=== PATIENT | male | born 1965 | race Caucasian/White ===

== ENCOUNTER → 2019-04-08 | Outpatient (CLI) | payer OTHER ==
--- NOTE | 2019-04-09 09:02 | RADIOLOGY REPORT (SQ) ---
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 TECHNIQUE: Multiplanar imaging includes non-contrasted T1, T2, FLAIR, and diffusion with ADC map seq uences. Images stored on PACS. LIMITATIONS: None. FINDINGS: ANATOMY: No anomalies. Normal vascular flow voids. Pituitary fossa normal. CSF SPACES: Normal in size and contour. No hemorrhage. CEREBRUM: Sulci and gyri normal in size and contour. Normal white matter signal on FLAIR imaging. No evidence of hemorrhage, mass, or extraaxial fluid collection. POSTERIOR FOSSA: No signal alteration. No hemorrhage. No edema, masses or mass effect. Internal luke tory canals, cerebello-pontine angles, mastoids normal. DIFFUSION IMAGING: Negative for acute or sub-acute infarction. ORBITS: No masses. Globes normal. PARANASAL SINUSES: No fluid levels. Mucosa normal. OTHER: No other significant finding. IMPRESSION: NORMAL MRI OF THE BRAIN WITHOUT INTRAVENOUS GADOLINIUM CONTRAST. EVIDENCE OF ACUTE STROKE: NO. TECHNICAL DOCUMENTATION: JOB ID: [id number] [employer]- All Rights Reserved Reading location - IP/workstation name: [email or web address]
== END ==
LOC: RAD 18:07
PROVIDERS: ATTEND Family Medicine
DX: G52.2 Disorders of vagus nerve (principal); H02.401 Unspecified ptosis of right eyelid
CPT/HCPCS: 70551

== ENCOUNTER 2019-04-20 18:02 | Emergency (ER) | payer OTHER ==
[2019-04-20] MEDS ORDERED: NORMAL SALINE 1000 ML 1,000 ML IV ONE (19:22)
--- NOTE | 2019-04-20 19:22 | ER Document Report ---
ED Medical Screen (RME) - General Chief Complaint: Allergy Symptoms Stated Complaint: POSSIBLE ALLERGIC REACTION Time Seen by Provider: 04/20/19 19:15 Primary Care Provider: MAL WEBB MD [Primary Care Provider] - Follow up as needed TRAVEL OUTSIDE OF THE [place] IN LAST 30 DAYS: No - HPI Notes: 04/20/19 19:22 Patient is a 53-year-old male with a history of anxiety who presents complaining of body aches/chills, "coating feeling over tongue," intermittent clamminess that began yesterday morning. Patient states that he did start taking Cymbalta at that time as well and is not sure if that is related. He is otherwise been able to eat and drink without difficultly. He is urinating normally and having normal bowel movements. He has no concern of pain otherwise. Denies SURESH, fever, neck pain, URI, CP, SOB, Abd pain, n/v/d, dysuria, back pain, or rash. I have treated and performed a rapid initial assessment of this patient. A comprehensive ED assessment and evaluation of the patient, analysis of test results and completion of medical decision making process will be conducted by additional ED providers. PHYSICAL EXAMINATION: GENERAL: Well-appearing, well-nourished and in no acute distress. A&Ox4. Answers questions appropriately. LUNGS: Breath sounds clear to auscultation bilaterally and equal. No wheezes rales or rhonchi. HEART: Regular rate and rhythm without murmurs, rubs, gallops. ABDOMEN: Soft, nondistended abdomen. No guarding, no rebound. Normal bowel sounds present. No CVA tenderness bilaterally. Grossly nontender (cannot elicit thorough abd exam w/o bed, however). Extremities: No cyanosis, clubbing, or edema b/l. NEUROLOGICAL: Normal speech, normal gait. Cranial nerves grossly intact. no focal weakness PSYCH: Normal mood, normal affect. - Related Data Allergies/Adverse Reactions: No Known Allergies Allergy (Unverified 04/20/19 18:37) Past Medical History - Social History Frequency of alcohol use: None Drug Abuse: None Renal/ Medical History: Denies: Hx Peritoneal Dialysis Physical Exam - Vital signs Vitals: Temp Pulse Resp BP Pulse Ox 98.8 F 71 16 133/85 H 96 04/20/19 18:37 04/20/19 18:37 04/20/19 18:37 04/20/19 18:37 04/20/19 18:37 Course - Vital Signs Vital signs: Temp Pulse Resp BP Pulse Ox 98.8 F 71 16 133/85 H 96 04/20/19 18:37 04/20/19 18:37 04/20/19 18:37 04/20/19 18:37 04/20/19 18:37 Doctor's Discharge - Discharge Referrals: MAL WEBB MD [Primary Care Provider] - Follow up as needed
[2019-04-20 20:17] LABS: ABSOLUTE BASOPHILS # (AUTO) 0.1 10^3/uL (0.0-0.2); ABSOLUTE EOSINOPHILS # (AUTO) 0.1 10^3/uL (0.0-0.6); ABSOLUTE LYMPHOCYTES (AUTO) 2.9 10^3/uL (0.5-4.7); ABSOLUTE MONOCYTES (AUTO) 0.9 10^3/uL (0.1-1.4); ABSOLUTE NEUT (AUTO) 8.5 10^3/uL (1.7-8.2); BASOPHILS % (AUTO) 0.9 % (0-2); EOSINOPHILS % (AUTO) 0.9 % (0-6); HEMATOCRIT 48.8 % (37.9-51.0); HEMOGLOBIN 16.3 g/dL (13.5-17.0); LYMPHOCYTES % (AUTO) 23.2 % (13-45); MEAN CORPUSCULAR HEMOGLOBIN 31.1 pg (27.0-33.4); MEAN CORPUSCULAR HGB CONC 33.4 g/dL (32.0-36.0); MEAN CORPUSCULAR VOLUME 93 fl (80-97); MONOCYTES % (AUTO) 6.8 % (3-13); PLATELET COUNT 339 10^3/uL (150-450); RED BLOOD COUNT 5.23 10^6/uL (4.35-5.55); RED CELL DISTRIBUTION WIDTH 13.3 % (11.5-14.0); SEGMENTED NEUTROPHILS % (AUTO) 68.2 % (42-78); TOTAL CELLS COUNTED % (AUTO) 100 %; WHITE BLOOD COUNT 12.5 10^3/uL (4.0-10.5)
[2019-04-20 20:32] LABS: ALANINE AMINOTRANSFERASE 20 U/L (21-72); ALBUMIN 4.6 g/dL (3.5-5.0); ALKALINE PHOSPHATASE 109 U/L (38-126); ANION GAP 9 (5-19); ASPARTATE AMINO TRANSFERASE 23 U/L (17-59); BILIRUBIN,DIRECT 0.2 mg/dL (0.0-0.4); BLOOD UREA NITROGEN 16 mg/dL (7-20); CALCIUM 9.8 mg/dL (8.4-10.2); CARBON DIOXIDE 26 mmol/L (22-30); CHLORIDE 107 mmol/L (98-107); CREATINE KINASE 68 U/L (55-170); GLUCOSE 86 mg/dL (75-110); POTASSIUM 4.1 mmol/L (3.6-5.0); SODIUM 141.7 mmol/L (137-145); TOTAL PROTEIN 7.7 g/dL (6.3-8.2)
[2019-04-20] MEDS ORDERED: DIAZEPAM 5 MG TABLET PO ONE (20:47)
--- NOTE | 2019-04-20 20:56 | ER Document Report ---
ED General - General Chief Complaint: Allergy Symptoms Stated Complaint: POSSIBLE ALLERGIC REACTION Time Seen by Provider: 04/20/19 19:15 Primary Care Provider: MAL WEBB MD [Primary Care Provider] - Follow up as needed Notes: Patient is a 53-year-old male that comes to the emergency department for chief complaint of low energy, generalized body aches, dry mouth, generally not feeling right. He states he started feeling this way after he started taking Cymbalta this patient, he was prescribed this for anxiety/depression. He denies palpitations, abdominal pain, chest pain, dizziness, focal numbness or weakness, fever/chills. He also was placed on Augmentin "for a toothache". Patient's states that she gave him some of her Cymbalta in the past and he had a similar reaction where he was tired all the time, had no energy, stayed in bed, and had nonspecific symptoms otherwise. Patient agrees with this but states he had forgotten this. He smokes, denies alcohol or recreational drugs. He denies suicidal ideations or homicidal ideations. TRAVEL OUTSIDE OF THE [place] IN LAST 30 DAYS: No - Related Data Allergies/Adverse Reactions: No Known Allergies Allergy (Unverified 04/20/19 18:37) Past Medical History - General Information source: Patient, Relative - Social History Smoking Status: Current Every Day Smoker Frequency of alcohol use: None Drug Abuse: None Lives with: Family Family History: Reviewed & Not Pertinent Patient has suicidal ideation: No Patient has homicidal ideation: No Renal/ Medical History: Denies: Hx Peritoneal Dialysis Review of Systems - Review of Systems Constitutional: See HPI EENT: See HPI Cardiovascular: No symptoms reported Respiratory: No symptoms reported Gastrointestinal: No symptoms reported Genitourinary: No symptoms reported Male Genitourinary: No symptoms reported Musculoskeletal: No symptoms reported Skin: No symptoms reported Hematologic/Lymphatic: No symptoms reported Neurological/Psychological: See HPI Physical Exam - Vital signs Vitals: Temp Pulse Resp BP Pulse Ox 98.8 F 71 16 133/85 H 96 04/20/19 18:37 04/20/19 18:37 04/20/19 18:37 04/20/19 18:37 04/20/19 18:37 - Notes Notes: GENERAL: Alert, interacts well. No acute distress. HEAD: Normocephalic, atraumatic. EYES: Pupils equal, round, and reactive to light. Extraocular movements intact. ENT: Oral mucosa moist, tongue midline. Oropharynx unremarkable. Airway patent. NECK: Full range of motion. Supple. Trachea midline. LUNGS: Clear to auscultation bilaterally, no wheezes, rales, or rhonchi. No respiratory distress. HEART: Regular rate and rhythm. No murmur ABDOMEN: Soft, non-tender. Non-distended. Bowel sounds present in all 4 quadrants. GENITOURINARY: Deferred EXTREMITIES: Moves all 4 extremities spontaneously. No edema, normal radial and dorsalis pedis pulses bilaterally. No cyanosis. BACK: no cervical, thoracic, lumbar midline tenderness. No saddle anesthesia, normal distal neurovascular exam. Moves all extremities in full range of motion. NEUROLOGICAL: Alert and oriented x3. Normal speech. Cranial nerves II through XII grossly intact. PSYCH: Slightly anxious, glancing around while speaking, restless behavior SKIN: Warm, dry, normal turgor. No rashes or lesions noted. Course - Re-evaluation Re-evalutation: On my examination patient is a parched mucous membranes, he is very anxious, however he has a normal neurological exam, his examination is completely unremarkable otherwise. He will be given IV fluids. Work-up pending. CBC shows mild leukocytosis, chemistry is unremarkable, urinalysis shows elevated specific gravity and ketones. I reevaluate the patient. Patient states he has not been able to sleep well for the past couple of days but he is exhausted all times. He states he had poor response to Cymbalta when he was taking in the past and he felt the same general way previously. I do not see any signs of concerning allergic reaction or concerning side effects. Vital signs are unremarkable. Patient denies SI or HI, he states he is close follow- up with his primary care who provided the Cymbalta, he states he is not planning on taking it tomorrow. Patient states he would like some to help calm down and sleep tonight, he was given a dose of Valium, he was reevaluated and much more comfortable. Discussed follow-up, work-up, and the patient with family as well, they state satisfaction with taking him home and having him follow-up. I discussed return precautions with the mouth. They state understanding and agreement. - Vital Signs Vital signs: Temp Pulse Resp BP Pulse Ox 98.1 F 71 17 121/67 98 04/20/19 21:20 04/20/19 18:37 04/20/19 22:01 04/20/19 22:01 04/20/19 22:01 - Laboratory Result Diagrams: 04/20/19 20:00 04/20/19 20:00 Laboratory results interpreted by me: 04/20/19 04/20/19 04/20/19 20:00 20:00 20:54 WBC 12.5 H Absolute Neutrophils 8.5 H ALT 20 L Urine Protein 30 H Urine Ketones 20 H Urine Urobilinogen 4.0 H Ur Leukocyte Esterase TRACE H Discharge - Discharge Clinical Impression: Medication side effect, Dehydration, Anxiety Condition: Stable Disposition: HOME, SELF-CARE Additional Instructions: Your work-up shows dehydration but is otherwise unremarkable. Your symptoms are nonspecific, as result it is uncertain if these are from the medication you just started or other source. However because you have had similar symptoms in the past with the same medication I recommend that you stop the Cymbalta until you speak to your primary care provider for additional management. Improve your hydration. Return if you worsen including headache, weakness on one side of your body, passing out, fever, or any other concerning or worsening symptoms. Forms: Return to Work Referrals: MAL WEBB MD [Primary Care Provider] - Follow up as needed
[2019-04-20 21:30] LABS: APPEARANCE,URINE SLIGHTLY-CLOUDY; BILIRUBIN,URINE NEGATIVE (NEGATIVE); GLUCOSE, URINE NEGATIVE (NEGATIVE); KETONES,URINE 20 mg/dL (NEGATIVE); LEUKOCYTE ESTERASE,URINE TRACE (NEGATIVE); NITRITE,URINE NEGATIVE (NEGATIVE); PROTEIN,URINE 30 mg/dL (NEGATIVE); URINE SPECIFIC GRAVITY 1.028
[2019-04-20 21:31] LABS: COLOR,URINE DARK YELLOW
[2019-04-20 22:20] VITALS: BP 121/67
== END 2019-04-20 22:28 | disposition home or self-care (01) ==
LOC: ER 18:02
DX: E86.0 Dehydration (principal); F41.9 Anxiety disorder, unspecified; T43.215A Adverse effect of selective serotonin and norepinephrine reuptake inhibitors, initial encounter; X58.XXXA Exposure to other specified factors, initial encounter; F17.200 Nicotine dependence, unspecified, uncomplicated
CPT/HCPCS: 99283; 36415; 82550; 85025; 80053; 81001; J7030

== ENCOUNTER 2020-02-13 08:02 | Emergency (ER) | payer OTHER ==
[2020-02-13 08:26] LABS: ABSOLUTE BASOPHILS # (AUTO) 0.1 10^3/uL (0.0-0.2); ABSOLUTE EOSINOPHILS # (AUTO) 0.2 10^3/uL (0.0-0.6); ABSOLUTE LYMPHOCYTES (AUTO) 2.4 10^3/uL (0.5-4.7); ABSOLUTE MONOCYTES (AUTO) 0.8 10^3/uL (0.1-1.4); ABSOLUTE NEUT (AUTO) 4.9 10^3/uL (1.7-8.2); BASOPHILS % (AUTO) 0.6 % (0-2); EOSINOPHILS % (AUTO) 2.6 % (0-6); HEMATOCRIT 46.5 % (37.9-51.0); LYMPHOCYTES % (AUTO) 29.3 % (13-45); MEAN CORPUSCULAR HEMOGLOBIN 32.7 pg (27.0-33.4); MEAN CORPUSCULAR HGB CONC 34.5 g/dL (32.0-36.0); MEAN CORPUSCULAR VOLUME 95 fl (80-97); MONOCYTES % (AUTO) 9.1 % (3-13); PLATELET COUNT 398 10^3/uL (150-450); RED BLOOD COUNT 4.91 10^6/uL (4.35-5.55); RED CELL DISTRIBUTION WIDTH 14.5 % (11.5-14.0); SEGMENTED NEUTROPHILS % (AUTO) 58.4 % (42-78); TOTAL CELLS COUNTED % (AUTO) 100 %; WHITE BLOOD COUNT 8.3 10^3/uL (4.0-10.5)
[2020-02-13] MEDS ORDERED: LIDOCAINE 2% VISCOUS SOLN 15 ML UDCUP PO ONE (08:29)
[2020-02-13] MEDS ORDERED: MAG HYDROX/AL HYDROX/SIMETH SUSP 30 ML UDCUP PO ONE (08:29)
[2020-02-13] MEDS ORDERED: METOCLOPRAMIDE HCL ORAL SOLN 10 MG/10 ML UDCUP PO ONE (08:29)
--- NOTE | 2020-02-13 08:30 | ER Document Report ---
ED Cardiac - General Chief Complaint: Chest Pain Stated Complaint: CHEST PAIN Time Seen by Provider: 02/13/20 08:13 Primary Care Provider: MAL WEBB MD [Primary Care Provider] - Follow up as needed Notes: CHIEF COMPLAINT: Sharp midsternal chest pain this morning HPI: 54-year-old male who smokes presenting for sharp midsternal chest pain today, describes it as a ripping sensation that began after he drank coffee this morning. Has not had nausea vomiting. Does report some tightness in the chest and shortness of breath with the discomfort only. Has not had recent cough fever or other illness. Patient reports no known history of cardiac problems. Patient states that he has had a toothache recently, recently saw his PCP to be placed on antibiotics yesterday but has been taking large amounts of ibuprofen f or the pain. ROS: See HPI - all other systems were reviewed and are otherwise negative Constitutional: no fever Eyes: no drainage, no blurred vision ENT: no runny nose, no sore throat Cardiovascular: + chest pain Resp: + SOB, no cough GI: no vomiting, no diarrhea, + abdominal pain : no dysuria Integumentary: no rash Allergy: no hives Musculoskeletal: no extremity pain or swelling Neurological: no numbness/tingling, no weakness MEDICATIONS: I agree with the patient medications as charted by the RN. ALLERGIES: I agree with the allergies as charted by the RN. PAST MEDICAL HISTORY/PAST SURGICAL HISTORY: Reviewed and agree as charted by RN. SOCIAL HISTORY: Reviewed and agree as charted by RN. FAMILY HISTORY: No significant familial comorbid conditions directly related to patient complaint EXAM: Reviewed vital signs as charted by RN. CONSTITUTIONAL: Alert and oriented and responds appropriately to questions. Well-appearing; well-nourished, moderate distress secondary to pain HEAD: Normocephalic; atraumatic EYES: PERRL; Conjunctivae clear, sclerae non-icteric ENT: normal nose; no rhinorrhea; moist mucous membranes; pharynx without lesions noted, no uvula edema or deviation, no tonsillar hypertrophy, phonation normal NECK: Supple without meningismus; non-tender; no cervical lymphadenopathy, no masses CARD: RRR; no murmurs, no clicks, no rubs, no gallops; symmetric distal pulses RESP: Normal chest excursion without splinting or tachypnea; breath sounds clear and equal bilaterally; no wheezes, no rhonchi, no rales, pulse oximetry 98% on room air not hypoxic ABD/GI: Normal bowel sounds; non-distended; soft, mild epigastric tenderness on palpation, no rebound, no guarding; no palpable organomegaly or masses. BACK: The back appears normal and is non-tender to palpation, there is no CVA tenderness EXT: Normal ROM in all joints; non-tender to palpation; no cyanosis, no effusions, no edema SKIN: Normal color for age and race; warm; dry; good turgor; no acute lesions noted NEURO: Moves all extremities equally; Motor and sensory function intact PSYCH: The patient's mood and manner are appropriate. Grooming and personal hygiene are appropriate. MDM: 54-year-old male with a sharp tearing sensation in the midsternal chest region, has been taking large amounts of ibuprofen recently for tooth ache. This may be gastritis, symptoms began after drinking coffee. He is not significantly hypertensive to suggest AAA. Screening cardiac labs obtained by triage process TRAVEL OUTSIDE OF THE [place] IN LAST 30 DAYS: No - Related Data Allergies/Adverse Reactions: No Known Allergies Allergy (Unverified 04/20/19 18:37) Past Medical History - Social History Smoking Status: Current Every Day Smoker Frequency of alcohol use: Occasional Drug Abuse: Marijuana Family History: Reviewed & Not Pertinent Patient has suicidal ideation: No Patient has homicidal ideation: No Renal/ Medical History: Denies: Hx Peritoneal Dialysis Physical Exam - Vital signs Vitals: Resp 12 02/13/20 08:09 Course - Re-evaluation Re-evalutation: 02/13/20 08:[address] Field. Given the patient's location of his chest discomfort and his description of a ripping or tearing sensation will obtain AAA CT 02/13/20 10:56 Did get mild relief with the GI cocktail but now pain is come back again. His scans do not show evidence of AAA or other significant abnormalities. Lab work initially normal, troponin normal. Likely a gastric ulcer from heavy ibuprofen use because of his dental pain issues. Will hold for a second troponin, will treat patient's pain 02/13/20 12:43 Second troponin is negative. Patient heart score is 3. Patient is much more comfortable at this time. This is more likely gastric ulcer from the large amount of ibuprofen he has been taking in for the dental issues. I did give patient strict return instructions. I will refer patient outpatient follow-up with cardiology and gastroenterology. I will place the patient on Carafate. - Vital Signs Vital signs: Temp Pulse Resp BP Pulse Ox 98.5 F 20 156/101 H 98 02/13/20 08:20 02/13/20 12:01 02/13/20 12:01 02/13/20 12:01 - Laboratory Result Diagrams: 02/13/20 08:12 02/13/20 08:12 Laboratory results interpreted by me: 02/13/20 02/13/20 08:12 08:12 RDW 14.5 H Chloride 110 H Glucose 114 H Discharge - Discharge Clinical Impression: Upper abdominal pain Chest pain Qualifiers: Chest pain type: unspecified Qualified Code(s): R07.9 - Chest pain, unspecified Condition: Stable Disposition: HOME, SELF-CARE Additional Instructions: Stop taking the ibuprofen for the dental issues as this is likely causing some of your stomach distress. Your work-up today did not show acute emergent abn ormalities. 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 You are also being referred to gastroenterology. Avoid alcohol avoid smoking avoid peppermint avoid chocolate avoid greasy or spicy foods. Return for worsening symptoms. If you are taking pain medication for the stomach discomfort do not drive Prescriptions: Sucralfate [Carafate 1 gm Tablet] 1 gm PO ACHS #60 tablet Hydrocodone/Acetaminophen [[place] 5-325 mg Tablet] 1 tab PO Q4 PRN #15 tablet PRN Reason: Pantoprazole Sodium [Protonix [address] Tablet] 20 mg PO DAILY #30 tablet.dr Referrals: MAL WEBB MD [Primary Care Provider] - Follow up as needed ROD CONN MD [ACTIVE STAFF] - Follow up as needed JADA CAMP MD [ACTIVE STAFF] - Follow up as needed
[2020-02-13 08:42] LABS: ALBUMIN 4.4 g/dL (3.5-5.0); ALKALINE PHOSPHATASE 115 U/L (38-126); ANION GAP 8 (5-19); ASPARTATE AMINO TRANSFERASE 37 U/L (17-59); BILIRUBIN,TOTAL 0.5 mg/dL (0.2-1.3); BLOOD UREA NITROGEN 18 mg/dL (7-20); CALCIUM 9.5 mg/dL (8.4-10.2); CARBON DIOXIDE 22 mmol/L (22-30); CHLORIDE 110 mmol/L (98-107); CREATINE KINASE 65 U/L (55-170); GLUCOSE 114 mg/dL (75-110); POTASSIUM 4.5 mmol/L (3.6-5.0); TOTAL PROTEIN 7.3 g/dL (6.3-8.2)
--- NOTE | 2020-02-13 08:50 | EKG REPORT ---
SEVERITY:- DEFECTIVE ECG - SINUS TACHYCARDIA NONSPECIFIC IVCD WITH LAD : Confirmed by: Solitario Hinojosa MD 13-Feb-2020 08:50:03
[2020-02-13 08:54] LABS: CREATINE KINASE MB 0.92 ng/mL (<4.55)
[2020-02-13 08:56] LABS: TROPONIN I < 0.012 ng/mL
--- NOTE | 2020-02-13 09:15 | RADIOLOGY REPORT (SQ) ---
EXAM DESCRIPTION: CHEST SINGLE VIEW IMAGES COMPLETED DATE/TIME: 02/13/2020 8:54 am REASON FOR STUDY: chest pain COMPARISON: None. NUMBER OF VIEWS: One view. TECHNIQUE: Single frontal radiographic view of the chest acquired. LIMITATIONS: None. FINDINGS: LUNGS AND PLEURA: No opacities, masses or pneumothorax. No pleural effusion. MEDIASTINUM AND HILAR STRUCTURES: No masses. Contour normal. HEART AND VASCULAR STRUCTURES: Heart normal in size. Normal vasculature. BONES: No acute findings. HARDWARE: None in the chest. OTHER: No other significant finding. IMPRESSION: NO SIGNIFICANT RADIOGRAPHIC FINDING IN THE CHEST. TECHNICAL DOCUMENTATION: JOB ID: [id number] 2010 [facility]- All Rights Reserved Reading location - IP/workstation name: [email or web address]
--- NOTE | 2020-02-13 09:49 | RADIOLOGY REPORT (SQ) ---
EXAM DESCRIPTION: CTA CHEST; CTA ABDOMEN/PELVIS W WO IMAGES COMPLETED DATE/TIME: 02/13/2020 9:34 am REASON FOR STUDY: r/a AAA; AAA COMPARISON: Chest films same date. TECHNIQUE: CT scan of the chest, abdomen and pelvis performed using helical scanning technique with dynamic intravenous contrast injection. Images reviewed with lung, soft tissue and bone windows. Re constructed coronal and sagittal MPR images reviewed. Additional 3 dimensional post-processing performed to develop Maximal Intensity Projection images ([place] P). All images stored on PACS. All CT scanners at this facility use dose modulation, iterative reconstruction, and/or weight based d osing when appropriate to reduce radiation dose to as low as reasonably achievable (ALARA). [facility]: Dose Right [facility]: CareDose [facility]: Dose Right [facility]: Teradose 4D [facility]: [email or web address] CONTRAST TYPE AND DOSE: contrast/concentration: Isovue 350.00 mg/ml; Total Contrast Delivered: 100.0 ml; Total Saline Delivered: 80.0 ml RENAL FUNCTION: GFR > 60. RADIATION DOSE: CT Rad equipment meets quality standard of care and radiation dose reduction techniq ues were employed. CTDIvol: 7.5 - 34.0 mGy. DLP: 1635 mGy-cm. . LIMITATIONS: None. FINDINGS: CHEST: COPD. No aortic aneurysm or dissection. Patent great vessel origins. No pulmonary embolus. No mediastinal mass or adenopathy. Chest wall intact. No bone pathology. ABDOMEN/PELVIS: No aortic aneurysm or dissection. Mild atherosclerosis. Patent major arterial and venous structures . No solid organ pathology. Gallbladder and biliary tree unremarkable. No bowel pathology. Normal appendix. No ascites or abnormal gas. No pelvic mass or fluid. Normal bladder. Normal bones. No abdominal wall pathology or hernia. 3D MIPS: Confirm above findings. OTHER: No other significant finding. IMPRESSION: 1. No acute thoracic abnormality. No evidence of aortic disease. 2. No acute abdominopelvic abnormality. Mild atherosclerosis without vascular pathology otherwise. COMMENT: Quality ID # [id number]: Final reports with documentation of one or more dose reduction techniques (e.g., Automated exposure control, adjustment of the mA and/or kV according to patient size, use of iterative reconstruction technique) TECHNICAL DOCUMENTATION: JOB ID: [id number] 2010 [employer]- All Rights Reserved Reading location - IP/workstation name: [email or web address]
--- NOTE | 2020-02-13 09:49 | RADIOLOGY REPORT (SQ) ---
EXAM DESCRIPTION: CTA CHEST; CTA ABDOMEN/PELVIS W WO IMAGES COMPLETED DATE/TIME: 02/13/2020 9:34 am REASON FOR STUDY: r/a AAA; AAA COMPARISON: Chest films same date. TECHNIQUE: CT scan of the chest, abdomen and pelvis performed using helical scanning technique with dynamic intravenous contrast injection. Images reviewed with lung, soft tissue and bone windows. Re constructed coronal and sagittal MPR images reviewed. Additional 3 dimensional post-processing performed to develop Maximal Intensity Projection images ([place] P). All images stored on PACS. All CT scanners at this facility use dose modulation, iterative reconstruction, and/or weight based d osing when appropriate to reduce radiation dose to as low as reasonably achievable (ALARA). [facility]: Dose Right [facility]: CareDose [facility]: Dose Right [facility]: Teradose 4D [facility]: [employer] CONTRAST TYPE AND DOSE: contrast/concentration: Isovue 350.00 mg/ml; Total Contrast Delivered: 100.0 ml; Total Saline Delivered: 80.0 ml RENAL FUNCTION: GFR > 60. RADIATION DOSE: CT Rad equipment meets quality standard of care and radiation dose reduction techniq ues were employed. CTDIvol: 7.5 - 34.0 mGy. DLP: 1635 mGy-cm. . LIMITATIONS: None. FINDINGS: CHEST: COPD. No aortic aneurysm or dissection. Patent great vessel origins. No pulmonary embolus. No mediastinal mass or adenopathy. Chest wall intact. No bone pathology. ABDOMEN/PELVIS: No aortic aneurysm or dissection. Mild atherosclerosis. Patent major arterial and venous structures . No solid organ pathology. Gallbladder and biliary tree unremarkable. No bowel pathology. Normal appendix. No ascites or abnormal gas. No pelvic mass or fluid. Normal bladder. Normal bones. No abdominal wall pathology or hernia. 3D MIPS: Confirm above findings. OTHER: No other significant finding. IMPRESSION: 1. No acute thoracic abnormality. No evidence of aortic disease. 2. No acute abdominopelvic abnormality. Mild atherosclerosis without vascular pathology otherwise. COMMENT: Quality ID # [id number]: Final reports with documentation of one or more dose reduction techniques (e.g., Automated exposure control, adjustment of the mA and/or kV according to patient size, use of iterative reconstruction technique) TECHNICAL DOCUMENTATION: JOB ID: [id number] 2010 [employer]- All Rights Reserved Reading location - IP/workstation name: [email or web address]
[2020-02-13] MEDS ORDERED: FAMOTIDINE INJ/PF 20 MG/2 ML SDV IV ONE (10:56)
[2020-02-13] MEDS ORDERED: MORPHINE SULFATE 10 MG/ML INJ IV ONE (10:56)
[2020-02-13] MEDS ORDERED: ONDANSETRON HCL INJ/PF 4 MG/2 ML SDV IV ONE (10:56)
--- NOTE | 2020-02-13 12:22 | EKG REPORT ---
SEVERITY:- ABNORMAL ECG - SINUS RHYTHM NONSPECIFIC INTRAVENTRICULAR CONDUCTION DELAY : Confirmed by: Solitario Hinojosa MD 13-Feb-2020 12:22:07
[2020-02-13 13:06] VITALS: BP 162/98
== END 2020-02-13 13:07 | disposition home or self-care (01) ==
LOC: ER 08:02
DX: R07.9 Chest pain, unspecified (principal); R10.10 Upper abdominal pain, unspecified; R06.02 Shortness of breath; F17.200 Nicotine dependence, unspecified, uncomplicated
CPT/HCPCS: 93005; 99284; 96374; 96375; 36415; 82553; 82550; 85025; 80053; 84484; 71045; 71275; 74174; 93010; J3490; J2270; J2405; S0028